=== PATIENT | male | born 1955 | race African-American/Black ===

== ENCOUNTER 2020-11-16 14:35 | Emergency (ER) | payer MEDICARE, OTHER ==
[~2020-11-16] VITALS: Ht 182.9 cm; Wt 82.4 kg
[~2020-11-16 14:35] MED LIST: AMLO-150 PO; BALS750C14 PO; CALC600T23 PO; CLOT15CR26 TP; CYAN100T22 PO; DICL100G25 TP; DIPH1TAB6 PO; ERGO2000 PO; FERR325T18 PO; HYDR-3237 PO; HYDROCORTISONE RC; LORA1TAB PO; NAPR-685 PO; POTA10TA31 PO; TRAZ50TA66 PO
[2020-11-16 14:37] VITALS: BP 139/86
[2020-11-16] MEDS ORDERED: FAMOTIDINE 20 MG TABLET PO ONE (15:00)
[2020-11-16] MEDS ORDERED: DIPHENHYDRAMINE 25 MG CAPSULE PO ONE (15:00)
--- NOTE | 2020-11-16 15:48 | NUR ---
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
[2020-11-16] MEDS ORDERED: FAMOTIDINE 20 MG TABLET ONE (16:22)
[2020-11-16] MEDS ORDERED: DIPHENHYDRAMINE 25 MG CAPSULE ONE (16:23)
== END 2020-11-16 16:31 ==
LOC: ED 16:25
DX: L24.9 Irritant contact dermatitis, unspecified cause (principal); L50.6 Contact urticaria; I10 Essential (primary) hypertension
CPT/HCPCS: 99283; J7512

== ENCOUNTER 2020-11-23 04:03 | Emergency (ER) | payer MEDICARE ==
[~2020-11-23] VITALS: Ht 180.3 cm; Wt 84.0 kg
[2020-11-23 04:24] VITALS: BP 161/101
--- NOTE | 2020-11-23 06:16 | NUR ---
pt left with signing ama at reg desk
== END 2020-11-23 06:17 | disposition left against medical advice (07) ==
LOC: ED 04:30
DX: M25.552 Pain in left hip (principal); Z53.21 Procedure and treatment not carried out due to patient leaving prior to being seen by health care provider